=== PATIENT | female | born 1995 ===

== ENCOUNTER 2024-02-08 13:21 | Emergency (ER) | payer OTHER ==
[~2024-02-08] VITALS: Ht 157.5 cm; Wt 63.6 kg
[2024-02-08 13:26] VITALS: TEMP 96.9
[2024-02-08] MEDS: LIDOCAINE 1% 10 ML VIAL ID ONE (15:43)
[2024-02-08] MEDS: BACITRACIN 0.9 GM PACKET OINTMENT TP ONE (15:43)
[2024-02-08] MEDS: PERTUSS(ACELL),DIPH,TET/PF 0.5 ML SYRINGE [ADULT] IM. ONE (15:45)
[2024-02-08] MEDS ORDERED: CEPH-558 PO (16:35)
[2024-02-08] MEDS: CEPHALEXIN MONOHYDRATE 500 MG CAPSULE PO ONE (16:43)
[2024-02-08 16:47] VITALS: BP 113/61; PULSE 63; RESP 18
== END 2024-02-08 16:53 | disposition home or self-care (01) ==
LOC: EMS 13:21
DX: S61.212A Laceration without foreign body of right middle finger without damage to nail, initial encounter (principal); W26.8XXA Contact with other sharp object(s), not elsewhere classified, initial encounter; Y93.89 Activity, other specified; Y92.89 Other specified places as the place of occurrence of the external cause; Y99.8 Other external cause status
CPT/HCPCS: 99283; 90715; 90471; 12001; J3490